=== PATIENT | female | born 1960 | race Caucasian/White ===

== ENCOUNTER → 2017-02-04 | Day surgery (SDC) | payer MEDICAID ==
[~2017-02-04] MED LIST: AZEL1SPR2 EACH NARE; BUPIVACAINE HCL PF 0.75% 30 ML VIAL ONE; BUPIVACAINE/EPINEPHRINE 0.25% 50 ML VIAL ONE; BUPIVACAINE/EPINEPHRINE 0.5% PF 10 ML VIAL ONE; DULO1CAP3 PO; EPINEPHrine HCL (1:1000) 1 MG/ML VIAL OTHER ONE; EPINEPHrine HCL (1:1000) 30 MG/30 ML VIAL OTHER ONE; ESTR0.62 VAGINAL; FLUT1SPR5 EACH NARE; FOLI400T PO; HYDR200T3 PO; IBUP800T23 PO; LACTATED RINGER'S 1000 ML INJ 1,000 ML ONE; LEVO75TA3 PO; LIDOCAINE 1.5%/EPINEPHrine 1:200,000 PF SOLN 30 ML AMP ONE; METH2.5T INJ; MIDAZOLAM HCL 5 MG/ML VIAL (1 ML) ONE; ONDANSETRON HCL 4 MG/2 ML VIAL IV PUSH ONE; PROPOFOL 200 MG/20 ML AMP IV ONE; TOPA25TA8 PO; VENTAER INH; ceFAZolin INJ 1,000 MG VIAL ONE
--- NOTE | 2017-02-04 12:29 | TN ---
cc: GERARD CORNEJO M.D. DATE OF SURGERY 02/04/2017 PREOPERATIVE DIAGNOSES 1. Left shoulder impingement with rotator cuff tendonitis with partial thickness tear. 2. Acromioclavicular degenerative arthritis with subclavicular impingement. . POSTOPERATIVE DIAGNOSES 1. Left shoulder full-thickness supraspinatus rotator cuff tear, not retracted. 2. 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 3. Acromioclavicular degenerative arthritis with subclavicular impingement. PROCEDURES PERFORMED 1. Left shoulder arthroscopic rotator cuff repair. 2. Left shoulder arthroscopic subacromial decompression (acromioplasty). 3. Left shoulder arthroscopic partial distal clavicle excision, greater than 10-mm. IMPLANTS One 4.5-mm Arthrex Bio-PushLock. One Arthrex FiberTape suture. SURGEON MD Leonardo ANESTHESIA General via laryngeal mask augmented by interscalene block and local infiltration. ESTIMATED BLOOD LOSS Blood loss was minimal FLUID REPLACEMENT 600 cc of crystalloid. SPECIMENS All specimens were sent. COUNTS All counts were correct. COMPLICATIONS There were no intraoperative complications. INDICATIONS FOR PROCEDURE Mrs. Patel is a 57-year-old woman who has been experiencing problems with left shoulder pain, loss of motion and impingement like symptoms. She has been treated conservatively without significant resolution of symptoms, although she did have good relief after subacromial injection for a period of time. An MRI of her left shoulder revealed evidence of high-grade impingement, AC joint arthritis with subclavicular impingement as well as a partial-thickness rotator cuff tear. There was no evidence of any high-grade arthritis or evidence of problems with labral or other intraarticular pathology such as a biceps lesion. As a result of her persistent symptoms and failure to have relief, she is being taken to the operating room for left shoulder arthroscopic intervention. She was aware that this could be anywhere from a simple decompression and distal clavicle excision to possibly even rotator cuff repair either arthroscopic or possibly open if necessary. She is now 7 months following repair of a large right shoulder rotator cuff tear and was hopeful that the procedure could be done arthroscopically if possible as to hopefully lessen some of her recovery time on the left side. She is aware of the risks, benefits, potential complications and limitations of the procedure and full written informed consent had been obtained. Appropriate preoperative instructions had also been given. She was given the option of ongoing conservative management if desired but she was simply not interested in further tolerance. DESCRIPTION OF PROCEDURE After the patient was properly identified in the holding area, she had correctly marked her left shoulder as did I and then she was given 1 gram of Ancef and an interscalene block by anesthesia. She was then taken in the operating suite where she was placed under general laryngeal mask anesthetic and then she was carefully placed in the lateral decubitus position with her right side. Please note that the right shoulder was thoroughly padded and an axillary roll was placed as well to help prevent problems with flare up of pain in her shoulder that had been operated on seven months prior. At this time her left arm was placed in 10 pounds of in-line traction with the arm placed at 45 degrees of abduction and neutral forward elevation and the c8apps well arm phipps was utilized in order to position her for this. At this time a brief time-out was held after she was prepped appropriately with alcohol and Hibiclens and she was also draped in a normal standard fashion including impervious stockinette on the left arm so it was draped free under traction. At this time a brief time-out was held confirming the left shoulder as her surgical site. The team was in agreement and the case was now begun. At this time standard posterior glenohumeral portal was established. The scope was introduced into the joint. Minimal effusion was appreciated and no evidence of any obvious intraarticular pathology was identified other than an obvious tear of the supraspinatus with minimal retraction. I tried to pass the scope through the area of irregularity and it would not go through. I went ahead and further inspected the rest of the glenohumeral joint. There was no evidence of any significant labral tear or evidence of biceps rupture and minimal arthritis was appreciated at the glenohumeral joint. At this time I went ahead and placed a lateral subacromial portal and then redirected the posterior glenohumeral portal into the posterior subacromial space. There was evidence of high-grade impingement and there was an obvious tear seen of the supraspinatus from the bursal side as well. I went ahead and explored and then debrided hypertrophic bursal tissue and then dissected out the anterolateral edge of the acromion. I went ahead and performed a thorough acromioplasty until the impingement was resolved and a flat roof was obtained and then I carried the dissection further medially releasing both the coracoacromial ligament which was done with electrocautery and there was no evidence of any significant bleeding and then carried the dissection to the acromioclavicular joint were subclavicular osteophytes were resected with a bur but also I resected approximately the distal 10-11 mm of distal clavicle and in order to eliminate the arthritic joint from possibly producing pain and tenderness. The subacromial space was now thoroughly decompressed at this time. I swept from medial to lateral and did not encounter any further acute pathology and both anteriorly and posteriorly there was minimal further pathology appreciated. The repair was now started. I went ahead and debrided some of the tissue at the footprint of the supraspinatus near the greater tuberosity. I debrided it with both hand instruments as well as a shaver and a bur and then I was able to take a punch and place it into the tuberosity without difficulty. I then went ahead and placed the Scorpion suture passer into the full-thickness tear of the supraspinatus. I placed a very broad horizontal mattress suture with a fiber tape, getting excellent purchase, tugged that into position and confirmed that a good purchase in the tendon was obtained by putting tension on it and moved the tendon quite well. It reapproximated it quite easily to the area of the anatomical footprint. I went ahead and then removed the punch and placed a 4.5- mm Bio-PushLock directly after threading the FiberTape on it. I placed it under tension, and then put the anchor into the pilot plant research technician hole getting good solid repair of the rotator cuff. It was a quite solid repair and, due to the fact it was not retracted and small, a single anchor I felt was more than adequate especially with the broad horizontal mattress suture tape. I went ahead and took the shoulder through a range of motion. The cuff moved nicely with the head and there was no evidence of any significant prominence. At this time I went ahead and explored the entire subacromial space once again and I did not find any new further pathology and was quite pleased with the amount of decompression and improvement obtained in that manner. At this time the subacromial space was thoroughly suction decompressed. All the instruments were removed. I went ahead and closed the portals with 3-0 nylon simple sutures, two in each incision site and then went ahead and injected 15 cc of 0.5% Marcaine with epi and then they were dressed with Xeroform, 4x4s and ABD. She was then taken from well arm traction, awoken from anesthesia and taken to Recovery in stable condition. She was placed into a sling. Appropriate postoperative instructions have been given. Gerard Cornejo MD Electronically Signed Gerard Cornejo MD SIS/SSB /11:33 AM /12:09 PM MTDD
== END | disposition home or self-care (01) ==
LOC: ESDC 08:22
PROVIDERS: ATTEND Orthopaedic Surgery Sports Medicine
DX: M75.122 Complete rotator cuff tear or rupture of left shoulder, not specified as traumatic (principal); M75.42 Impingement syndrome of left shoulder; M19.012 Primary osteoarthritis, left shoulder
CPT/HCPCS: 01630; 01991; 29824; 29826; 29827; 64417; C1713; J0171; J0690; J2250; J2405; J7120